=== PATIENT | female | born 1970 | race Asian ===

== ENCOUNTER 2024-07-31 15:41 | Outpatient (REF) | payer OTHER, SELFPAY ==
[2024-07-31 21:59] LABS: Calculated LDL 75 mg/dL (<100); Cholesterol 226 mg/dL (<200); HDL Cholesterol 140 mg/dL (40-60); Triglyceride 56 mg/dL (<150)
== END 2024-07-31 15:42 | disposition home or self-care (01) ==
LOC: NCHCN 15:41
PROVIDERS: Visit Provider Family Medicine
DX: E78.5 Hyperlipidemia, unspecified (principal)
CPT/HCPCS: 80061

== ENCOUNTER 2025-08-03 15:20 | Outpatient (REF) | payer OTHER, SELFPAY ==
--- NOTE | 2025-08-03 13:15 | PAPFT_PTH ---
PATIENT: Fabiola Berkowitz LOC: [facility] U#:[id number] AGE/SX: 55/F ROOM: RE08/03/[address]: Catrachita Hughes : 1970 BED: DIS: 08/03/2025 SPEC #: [id number] RECD: 08/04/25 12:33 STATUS: OMAR REQ #: [id number] TYRONE: 08/03/25 13:[address]: Catrachita Hughes DEPT: [facility] Cytology RECD BY: Sandra Melendez ENTERED: 08/04/25 12:33 SP TYPE: PAPFT OTHR DR: Unknown,Unknown Tissues: 1 - CX/ENDOCX FOR PAP SMEARS Procedures: PAP THIN PREP/[facility] Screening HPV DNA PROBE Comments: [id number] (HPV 16 & 18/45)
[2025-08-03 21:25] LABS: Cholesterol 214 mg/dL (<200); HDL Cholesterol 108 mg/dL (>40)
[2025-08-03 21:30] LABS: TSH (W/Ref FT4) 2.21 uIU/mL (0.55-4.78)
== END 2025-08-03 15:21 | disposition home or self-care (01) ==
LOC: NCHCN 15:20
PROVIDERS: Visit Provider Family Medicine
DX: L65.9 Nonscarring hair loss, unspecified (principal); E78.5 Hyperlipidemia, unspecified; Z12.4 Encounter for screening for malignant neoplasm of cervix
CPT/HCPCS: 80061; 88142; 84443; 87624